=== PATIENT | female | born 1950 | race Asian ===

== ENCOUNTER 2016-11-18 10:40 | Outpatient (CLI) | payer MEDICARE, OTHER | END 2016-11-18 10:41 | disposition home or self-care (01) | DX: Z12.31 Encounter for screening mammogram for malignant neoplasm of breast (principal) ==

== ENCOUNTER 2017-05-17 14:08 | Emergency (ER) | payer MEDICARE, OTHER ==
[2017-05-17 14:14] VITALS: BP 132/75
--- NOTE | 2017-05-17 15:21 | ED Physician Documentation ---
PD HPI HEENT - Stated complaint Stated Complaint: HEARING LOSS - Chief complaint Chief Complaint: Heent - History obtained from History obtained from: Patient - History of Present Illness Timing - onset: Other (Cannot hear from either side after swimming today, no injury or pain.) Review of Systems Constitutional: denies: Fever, Chills Ears: denies: Drainage/discharge Nose: denies: Rhinorrhea / runny nose, Congestion, Foreign Body Throat: denies: Sore throat PD PAST MEDICAL HISTORY - Past Medical History Cardiovascular: Hypertension, High cholesterol Respiratory: Asthma Endocrine/Autoimmune: Type 2 diabetes GI: GI bleed - Present Medications Home Medications: Ambulatory Orders Medication Instructions Recorded Confirmed Simvastatin 20 mg PO DAILY 04/19/14 05/17/17 metFORMIN [Glucophage] 500 mg PO DAILY 04/19/14 05/17/17 - Allergies Allergies/Adverse Reactions: Allergies Allergy/AdvReac Type Severity Reaction Status Date / Time No Known Drug Allergies Allergy Verified 06/12/16 13:14 - Social History Does the pt smoke?: No Smoking Status: Never smoker Does the pt drink ETOH?: Yes Does the pt have substance abuse?: No PD ED PE NORMAL - Vitals Vital signs reviewed: Yes - General General: Alert and oriented X 3, No acute distress - HEENT HEENT: Other (Bilateral cerumen impaction) - Neuro Neuro: Alert and oriented X 3, Normal speech - Psych Psych: Normal mood, Normal affect Results - Vitals Vitals: Vital Signs - 24 hr 05/17/17 14:11 Temperature 36.4 C L Heart Rate 67 Respiratory 18 Rate Blood Pressure 132/75 H O2 Saturation 99 Oxygen O2 Source Room air Procedures - General procedure General procedure: Both ears were disimpacted with syringe irrigation and after that she was improved. Departure - Departure Disposition: 01 Home, Self Care Clinical Impression: Cerumen impaction Qualifiers: Laterality: bilateral Qualified Code(s): H61.23 - Impacted cerumen, bilateral Condition: Good Record reviewed to determine appropriate education?: Yes Instructions: ED Earwax Removal Comments: You can use [id number] eardrops as directed on the package to prevent this in the future. Your blood pressure was elevated today on check into the emergency department. This does not mean that you have hypertension, it is a common phenomenon to come to the emergency department and have elevated blood pressure. I recommend that she see her primary care physician within the week to have it rechecked when you are feeling better.
== END 2017-05-17 15:26 | disposition home or self-care (01) ==
LOC: ED 14:08
DX: H61.23 Impacted cerumen, bilateral (principal); I10 Essential (primary) hypertension; E78.00 Pure hypercholesterolemia, unspecified; J45.909 Unspecified asthma, uncomplicated; E11.9 Type 2 diabetes mellitus without complications; Z79.84 Long term (current) use of oral hypoglycemic drugs
CPT/HCPCS: 99282; 99283

== ENCOUNTER 2018-03-24 16:10 | Emergency (ER) | payer MEDICARE, OTHER ==
[2018-03-24 16:22] VITALS: BP 157/89
[2018-03-24] MEDS ORDERED: LIDOCAINE TOPICAL 4% 50 ML BOTTLE MM STA (17:51)
--- NOTE | 2018-03-24 18:46 | ED Physician Documentation ---
History of Present Illness - Stated complaint Stated Complaint: EAR PX - Chief complaint Chief Complaint: Heent - Additonal information Additional information: to ER with concern for cerumen impaction hx same has been trying to irrigate wax out and use OTC drops for a week or so ears canals very painful now Review of Systems Ears: reports: Ear pain PD PAST MEDICAL HISTORY - Past Medical History Past Medical History: Yes Cardiovascular: Hypertension, High cholesterol Respiratory: Asthma Endocrine/Autoimmune: Type 2 diabetes GI: GI bleed - Past Surgical History Past Surgical History: No - Present Medications Home Medications: Ambulatory Orders Medication Instructions Recorded Confirmed metFORMIN [Glucophage] 500 mg PO DAILY 04/19/14 05/17/17 Neomycin/Polymyx/Hc Otic Drops 4 drops OT Q6H 7 Days #1 bottle 03/24/18 [Cortisporin Ear Susp] - Allergies Allergies/Adverse Reactions: Allergies Allergy/AdvReac Type Severity Reaction Status Date / Time No Known Drug Allergies Allergy Verified 05/17/17 15:19 - Social History Does the pt smoke?: No Smoking Status: Never smoker Does the pt drink ETOH?: Yes Does the pt have substance abuse?: No - Immunizations Immunizations are current?: Yes - POLST Patient has POLST: No PD ED PE NORMAL - Vitals Vital signs reviewed: Yes - HEENT HEENT: Other (both ears with edematous canals, no mastoid swelling, tender, some partially occlusive cerumen, TMs diff to see) - Cardiac Cardiac: RRR - Respiratory Respiratory: Clear bilaterally Results - Vitals Vitals: Vital Signs - 24 hr 03/24/18 16:16 Temperature 36.7 C Heart Rate 97 Respiratory 16 Rate Blood Pressure 157/89 H O2 Saturation 98 Oxygen O2 Source Room air PD MEDICAL DECISION MAKING - ED course ED course: even with lido gtt pt could not tolerate irrigation so i rec antibiotic gtt then try again in a week she left without her rx Departure - Departure Disposition: 01 Home, Self Care Clinical Impression: Otitis externa Qualifiers: Otitis externa type: unspecified type Chronicity: acute Laterality: bilateral Qualified Code(s): H60.503 - Unspecified acute noninfective otitis externa, bilateral Cerumen impaction Qualifiers: Laterality: bilateral Qualified Code(s): H61.23 - Impacted cerumen, bilateral Instructions: ED Otitis Externa Follow-Up: Jovon Gannon MD [Primary Care Provider] - Prescriptions: Neomycin/Polymyx/Hc Otic Drops [Cortisporin Ear Susp] 4 drops OT Q6H 7 Days #1 bottle Comments: Your ear canals are infected - perhaps due to your efforts to get the wax out. So it is too painful for us to irrigate your ears today even after lidocaine drops Please use the antibiotic drops for a week to get the infection and inflammation under control, then follow up with your PMD for a recheck and irrigation
== END 2018-03-24 18:47 | disposition home or self-care (01) ==
LOC: ED 16:10
DX: H61.23 Impacted cerumen, bilateral (principal); H60.503 Unspecified acute noninfective otitis externa, bilateral; E11.9 Type 2 diabetes mellitus without complications; I10 Essential (primary) hypertension; Z79.84 Long term (current) use of oral hypoglycemic drugs
CPT/HCPCS: 99283

== ENCOUNTER 2018-04-14 21:50 | Outpatient (CLI) | payer MEDICARE, OTHER ==
--- NOTE | 2018-04-14 23:05 | Ultrasound Report ---
EXAM: ABDOMEN ULTRASOUND EXAM DATE: 04/14/2018 10:45 PM. CLINICAL HISTORY: Abnormal liver function tests. COMPARISON: None. TECHNIQUE: Real-time scanning was performed with static images obtained. FINDINGS: Liver: Enlarged and echogenic. Heterogeneous. 19.6 cm. Main portal vein flow: Hepatopetal. Gallbladder: Normal. No stones, wall thickening, or sonographic Neri's sign. Biliary System: Common bile duct measures 9 mm. No common duct stone identified. Pancreas: Not well seen due to bowel gas. Kidneys: Right: 11.1 cm longitudinally. Normal. No contour-deforming mass, stones, or hydronephrosis. Left: 11.0 cm longitudinally. Normal. No contour-deforming mass, stones, or hydronephrosis. Spleen: 8.7 cm. Normal in size and echotexture. Aorta and Inferior Vena Cava: Unremarkable where seen. Other: None. IMPRESSION: 1. No cholelithiasis or cholecystitis identified. 2. Enlarged fatty liver measuring 19.6 cm. 3. Prominent common bile duct measuring 9 mm. No obvious common duct stone identified. If there is el evated bilirubin, consider MRCP for further evaluation. KEEGAN The call report notification system was initiated by Dr. Jovon Soto at 22:58 hrs on 04/14/18. The above findings were discussed with Dr. Unger by Dr. Jovon Soto at 23:03 hrs on 04/14/18. Referring Provider Line: [phone] SITE ID: [id number]
== END 2018-04-14 21:51 | disposition home or self-care (01) ==
LOC: DI 21:50
PROVIDERS: ATTEND Specialist
DX: R94.5 Abnormal results of liver function studies (principal); K76.0 Fatty (change of) liver, not elsewhere classified
CPT/HCPCS: 76700

== ENCOUNTER 2024-05-11 11:39 | Outpatient (CLI) | payer MEDICARE, OTHER ==
--- NOTE | 2024-05-12 12:27 | XRAY Report ---
PROCEDURE: Ribs w/PA Chest 3+V LT INDICATIONS: LEFT SIDED ABDOMINAL PAIN TECHNIQUE: 2 views of the ribs were acquired, along with a single view chest. COMPARISON: None. FINDINGS: Surgical changes and devices: None. Bones and chest wall: No fractures or dislocations. No suspicious bony lesions. Overlying soft tis sues appear unremarkable. Lungs and pleura: No pleural effusions or pneumothorax. Lungs appear clear. Mediastinum: Mediastinal contours appear normal. Heart size is normal. IMPRESSION: No displaced rib fracture or pneumothorax. Reviewed by: Javier Leblanc MD on 05/12/2024 12:26 PM PDT Approved by: Javier Leblanc MD on 05/12/2024 12:26 PM PDT Station ID: [id number]
== END 2024-05-11 11:40 | disposition home or self-care (01) ==
LOC: DI 11:39
PROVIDERS: ATTEND Internal Medicine
DX: R10.9 Unspecified abdominal pain (principal)

== ENCOUNTER 2024-06-01 09:17 | Outpatient (CLI) | payer MEDICARE, OTHER ==
--- NOTE | 2024-06-02 10:38 | Mammography Report ---
BILATERAL DIGITAL SCREENING MAMMOGRAM 3D/2D: 06/01/2024 CLINICAL: Routine screening. Comparison is made to exams dated: 07/03/2022 mammogram, 11/18/2016 mammogram, 10/09/2015 mammogram, an d 07/28/2014 mammogram - [facility]. There are scattered areas of fibroglandular density in both breasts (category b / 25%-50% glandular t issue). There are benign calcifications in both breasts. There also is a biopsy clip in the right breast. No significant masses, calcifications, or other findings are seen in either breast. There has been no significant interval change. IMPRESSION: BENIGN There is no mammographic evidence of malignancy. A 1 year screening mammogram is recommended. Based on the Tyrer Cuzick model (a risk assessment model) the patient's lifetime risk is 3.3% and her 10 year risk is 3.3%. According to the ACR, ACS, and NCCN guidelines, an annual breast MRI exam fe g with mammogram is recommended if the patient's lifetime risk is 20% or greater. This exam was interpreted at Station ID: [id number]. NOTE: For mammograms, a report in lay terms will be sent to the patient. Approximately 15% of breast malignancies will not be visualized mammographically. In the management of a palpable breast mass, a negative mammogram must not discourage biopsy of a clinically suspicious lesion. Electronically Signed By: Johanny sandoval/anum:06/01/2024 12:12:01 letter sent: No_Letter ACR BI-RADS Category 2: Benign Finding(s) 3342F PARENCHYMAL PATTERN: (A) - The breast(s) demonstrate(s) scattered fibroglandular densities. BI-RADS CATEGORY: (2) - 2 RECOMMENDATION: (ANNUAL) - Recommend routine annual screening mammography. [id number] 1 year screening LATERALITY: (B)
== END 2024-06-01 09:18 | disposition home or self-care (01) ==
LOC: DI 09:17
PROVIDERS: ATTEND Internal Medicine
DX: Z12.31 Encounter for screening mammogram for malignant neoplasm of breast (principal); R92.323 Mammographic fibroglandular density, bilateral breasts; R92.1 Mammographic calcification found on diagnostic imaging of breast